=== PATIENT | female | born 2005 | race Asian ===

== ENCOUNTER 2025-02-20 09:45 | Emergency (ER) | payer OTHER ==
[~2025-02-20] VITALS: Ht 162.6 cm; Wt 60.0 kg
[2025-02-20 09:48] VITALS: BP 126/71; TEMP 97.9; O2SAT 100
[2025-02-20] MEDS ORDERED: CYCL-707 PO (10:35)
[2025-02-20] MEDS ORDERED: IBUP600T42 PO (10:35)
== END 2025-02-20 10:38 | disposition home or self-care (01) ==
LOC: M ED 09:45
DX: M54.50 Low back pain, unspecified (principal)